=== PATIENT | male | born 1980 | race Caucasian/White ===

== ENCOUNTER → 2017-01-12 | Outpatient (CLI) | payer OTHER ==
--- NOTE | 2017-01-12 17:05 | DI ---
LEFT TIBIA AND FIBULA, 01/12/2017 4:34 PM: Clinical History: Closed displaced fracture of the shaft of the left tibia with routine healing. Previous Exam: 03/17/2016. AP and lateral views are submitted. The patient is status post ORIF of the fracture of the distal thi rd of the tibia. An intramedullary roger has been inserted into the tibia and transfixed with a single proximal screw and 2 distal screws. There is a fracture of the distal third of the fibula. The tibial fracture is in anatomic alignment and position. The fibular fracture shows anatomic alignment and po sition in the AP projection and there is one bone shaft diameter posterior displacement of the distal fracture fragment on the lateral projection. Both fractures demonstrate complete healing. Reading: Healed fractures of the distal third of the tibia and fibula with alignment and position as above.
== END ==
LOC: MOB RAD 16:37
PROVIDERS: ATTEND Family Medicine
DX: S82.232D Displaced oblique fracture of shaft of left tibia, subsequent encounter for closed fracture with routine healing (principal); F17.200 Nicotine dependence, unspecified, uncomplicated
CPT/HCPCS: 73590

== ENCOUNTER → 2017-03-30 | Outpatient (CLI) | payer OTHER ==
--- NOTE | 2017-04-13 11:50 | DI ---
XR TIB/FIB 2VW,03/30/2017 4:31 PM: Clinical History: Pain in the left lower leg. Previous Exam: January 12, 2017. Findings: AP and lateral views of the left tibia and fibula are obtained, and demonstrate a stable intramedulla ry roger within the tibia. There is also significant callus formation which appears essentially stable from the prior exam. Impression: No significant change from prior.
== END ==
LOC: ORTHO 16:40
PROVIDERS: ATTEND Orthopaedic Surgery
DX: S82.232D Displaced oblique fracture of shaft of left tibia, subsequent encounter for closed fracture with routine healing (principal); T84.498D Other mechanical complication of other internal orthopedic devices, implants and grafts, subsequent encounter; M79.662 Pain in left lower leg
CPT/HCPCS: 73590